=== PATIENT | male | born 1955 | race Two or more races ===

== ENCOUNTER 2024-11-29 20:19 | Emergency (ER) | payer OTHER ==
[~2024-11-29] VITALS: Ht 172.7 cm; Wt 77.0 kg
[2024-11-29 20:27] VITALS: TEMP 98.4; O2SAT 99
[2024-11-29] MEDS: LABETALOL 5MG/ML 4ML INJ IV ONE (20:52)
[2024-11-29 21:06] LABS: BASOPHILS % 0.3 % (0.0-2.0); CARBON DIOXIDE 22 mEq/L (21-32); CHLORIDE 106 mEq/L (98-107); EOSINOPHILS % 1.5 % (0.0-5.0); HEMATOCRIT. 41.2 % (42.0-52.0); LYMPHOCYTES % 20.5 % (20.0-50.0); MEAN CORPUSCULAR HEMOGLOBIN 30.6 pg (28.0-32.0); MEAN CORPUSCULAR HGB CONC 34.1 g/dL (31.0-37.0); MEAN CORPUSCULAR VOLUME 89.8 fL (80.0-94.0); MEAN PLATELET VOLUME 9.4 fl (7.4-10.4); MONOCYTES % 9.8 % (2.0-8.0); NEUTROPHILS % 67.9 % (40.0-76.0); PLATELET 185 x1000/uL (130-400); POTASSIUM 3.7 mEq/L (3.5-5.1); RED BLOOD CELL COUNT 4.59 mill/uL (4.7-6.1); RED CELL DISTRIBUTION WIDTH 13.5 % (11.6-14.6); SODIUM 139 mEq/L (136-145); WHITE BLOOD COUNT 9.3 x1000/uL (4.5-11.0)
[2024-11-29 21:07] LABS: CALCIUM 9.5 mg/dL (8.7-10.4)
[2024-11-29 21:12] LABS: GLUCOSE 145 mg/dL (70-105); INR 1.1; PARTIAL THROMBOPLASTIN TIME 27.4 sec (23.4-31.0); PROTHROMBIN TIME 11.9 sec (9.6-11.0); UREA NITROGEN BLOOD 21 mg/dL (9-23)
[2024-11-29 21:50] LABS: TROPONIN I HIGH SENSITIVITY 5 ng/L (3.0-53)
[2024-11-30] MEDS ORDERED: IOHEXOL-350 100 ML BOTTLE ONE (00:08)
[2024-11-30] MEDS: ASPIRIN 325MG EC TABLET PO ONE (00:54)
[2024-11-30 02:00] VITALS: BP 140/78; PULSE 51; RESP 13; O2SAT 97
== END 2024-11-30 02:22 | disposition home or self-care (01) ==
LOC: ER 20:19
DX: I63.9 Cerebral infarction, unspecified (principal); I16.0 Hypertensive urgency
CPT/HCPCS: 99285; 70496; 96374; 71045; 80048; 83880; 85025; 85610; 85730; 86850; 86900; 86901; 84484; 36415; 70498; 70450; 93005; J3490; Q9967